=== PATIENT | male | born 1960 | race African-American/Black ===

== ENCOUNTER 2017-10-05 11:13 | Inpatient (IN) ==
[2017-10-05 12:11] LABS: Basophils # 0.1 10*3/uL (0.0-0.2); Basophils % 0.2 % (0.0-0.8); Eosinophils # 0.1 10*3/uL (0.0-0.87); Eosinophils % 0.4 % (0.00-10.9); Hematocrit 32.8 VOL% (42.0-52.0); Hemoglobin 11.3 GM/DL (14.0-18.0); Immature Granulocytes % 0.7 %; Immature Granulocytes Absolute 0.23 #; Lymphocytes # 20.2 10*3/uL (1.4-4.0); Lymphocytes % 60.2 % (21.2-54.2); Mean Corpuscular HGB Conc 34.5 GM/DL (32-36); Mean Corpuscular Hemoglobin 27 PG (27-34); Mean Corpuscular Volume 78.3 FL (87-102); Mean Platelet Volume 10.6 FL (9.6-12.0); Monocytes # 3.7 10*3/uL (0.11-0.8); Monocytes % 10.9 % (1.7-12.7); Neutrophils # 9.2 10*3/uL (1.4-7.4); Neutrophils % 27.6 % (38.7-73.9); Platelet Count 235 T/CUMM (130-400); Red Blood Count 4.19 MC/CUMM (3.8-5.5); Red Cell Distribution Width 15.3 % (9.3-17.3); White Blood Count 33.5 T/CUMM (4-12)
[2017-10-05 12:34] LABS: Atypical Lymphocytes Few; Eosinophils 1 % (0-10); Hypochromasia Slight; Lymphocytes 59 % (20-55); Platelet Estimate Adequate; Segmented Neutrophils 36 % (50-85); Total Cells Counted 100
[2017-10-05 12:35] LABS: Smudge Cells Few
[2017-10-05 12:55] LABS: Albumin 3.8 G/DL (3.4-5.0); Bilirubin,Total 0.8 MG/DL (0.2-1.0); Osmolality,Calculated 299.4 MOS/KG (273-304); Potassium 4.5 MMOL/L (3.5-5.1); Total Protein 7.5 G/DL (6.4-8.3)
[2017-10-05] MEDS ORDERED: ONDANSETRON 4 MG/2 ML VIAL IV PRN (13:21)
[2017-10-05] MEDS ORDERED: FUROSEMIDE 40 MG/4 ML VIAL IV STA (13:29)
[2017-10-05] MEDS ORDERED: cefTRIAXone 1,000 MG in SYRINGE 1 EACH IV STA (13:42)
[2017-10-05] MEDS ORDERED: AZITHROMYCIN INJ 500 MG in SODIUM CHLORIDE 0.9% 250 ML IV STA (13:42)
[2017-10-05] MEDS ORDERED: DEXTROSE 50% 25 GM/50 ML VIAL IV PRN (13:54)
[2017-10-05] MEDS ORDERED: GLUCAGON 1 MG VIAL IM PRN (13:54)
[2017-10-05] MEDS ORDERED: ONDANSETRON 4 MG/2 ML VIAL IV STA (14:13)
[2017-10-05 14:35] LABS: Hepatitis B Surface Ab Result Positive; Hepatitis B Surface Ag Quant < 0.10 Index; Hepatitis B Surface Ag Result Negative (Negative)
[2017-10-05] MEDS: CALCIUM CARBONATE CHEW 500 MG TABLET PO SCH (19:26)
[2017-10-05] MEDS: INSULIN LISPRO 100 UNIT/ML SUBCUT SCH ×2 (19:26→22:25)
[2017-10-05] MEDS: ENOXAPARIN 30 MG/0.3 ML SYRINGE SUBCUT SCH (22:25)
[2017-10-06] MEDS: ACETAMINOPHEN 325 MG TABLET PO PRN ×2 (05:38→19:46)
[2017-10-06 05:59] LABS: Basophils # 0.1 10*3/uL (0.0-0.2); Basophils % 0.2 % (0.0-0.8); Eosinophils # 0.1 10*3/uL (0.0-0.87); Eosinophils % 0.4 % (0.00-10.9); Hematocrit 33.1 VOL% (42.0-52.0); Hemoglobin 11.6 GM/DL (14.0-18.0); Immature Granulocytes % 0.5 %; Immature Granulocytes Absolute 0.16 #; Lymphocytes # 18.9 10*3/uL (1.4-4.0); Mean Corpuscular Hemoglobin 27 PG (27-34); Mean Corpuscular Volume 76.1 FL (87-102); Monocytes # 3.1 10*3/uL (0.11-0.8); Monocytes % 10.6 % (1.7-12.7); Neutrophils # 6.8 10*3/uL (1.4-7.4); Neutrophils % 23.3 % (38.7-73.9); Platelet Count 220 T/CUMM (130-400); Red Blood Count 4.35 MC/CUMM (3.8-5.5); Red Cell Distribution Width 15.3 % (9.3-17.3); White Blood Count 29.1 T/CUMM (4-12)
[2017-10-06 06:24] LABS: Atypical Lymphocytes Few; Hypochromasia 1+; Lymphocytes 64 % (20-55); Platelet Estimate Adequate; Segmented Neutrophils 35 % (50-85); Smudge Cells Few; Total Cells Counted 100
[2017-10-06 06:31] LABS: Albumin 3.2 G/DL (3.4-5.0); Bilirubin,Total 0.9 MG/DL (0.2-1.0); Calcium 8.5 MG/DL (8.5-10.1); Osmolality,Calculated 290.4 MOS/KG (273-304); Potassium 4.8 MMOL/L (3.5-5.1); Total Protein 7.2 G/DL (6.4-8.3)
[2017-10-06] MEDS: INSULIN LISPRO 100 UNIT/ML SUBCUT SCH ×4 (07:39→21:30)
[2017-10-06] MEDS: PANTOPRAZOLE 40 MG TABLET PO SCH (09:08)
[2017-10-06] MEDS: CALCIUM CARBONATE CHEW 500 MG TABLET PO SCH ×3 (09:08→17:19)
[2017-10-06] MEDS: DOCUSATE SODIUM 100 MG CAPSULE PO SCH (09:08)
[2017-10-06] MEDS: ENOXAPARIN 30 MG/0.3 ML SYRINGE SUBCUT SCH ×2 (19:47→21:31)
[2017-10-07 05:52] LABS: Basophils # 0.1 10*3/uL (0.0-0.2); Basophils % 0.2 % (0.0-0.8); Eosinophils # 0.2 10*3/uL (0.0-0.87); Eosinophils % 0.7 % (0.00-10.9); Hematocrit 29.4 VOL% (42.0-52.0); Hemoglobin 10.1 GM/DL (14.0-18.0); Immature Granulocytes % 0.6 %; Immature Granulocytes Absolute 0.19 #; Lymphocytes # 20.6 10*3/uL (1.4-4.0); Lymphocytes % 67.1 % (21.2-54.2); Mean Corpuscular HGB Conc 34.4 GM/DL (32-36); Mean Corpuscular Hemoglobin 27 PG (27-34); Mean Corpuscular Volume 77.2 FL (87-102); Monocytes # 3.9 10*3/uL (0.11-0.8); Monocytes % 12.7 % (1.7-12.7); Neutrophils # 5.8 10*3/uL (1.4-7.4); Neutrophils % 18.7 % (38.7-73.9); Platelet Count 202 T/CUMM (130-400); Red Blood Count 3.81 MC/CUMM (3.8-5.5); Red Cell Distribution Width 15.2 % (9.3-17.3); White Blood Count 30.7 T/CUMM (4-12)
[2017-10-07 06:35] LABS: Hypochromasia Slight; Lymphocytes 70 % (20-55); Microcytosis Slight; Platelet Estimate Adequate; Polychromasia Slight; Segmented Neutrophils 21 % (50-85); Smudge Cells Moderate; Target Cells Slight; Total Cells Counted 100
[2017-10-07 09:00] LABS: Calcium 8.8 MG/DL (8.5-10.1); Osmolality,Calculated 289.8 MOS/KG (273-304); Potassium 4.8 MMOL/L (3.5-5.1)
[2017-10-07] MEDS: CALCIUM CARBONATE CHEW 500 MG TABLET PO SCH ×3 (10:38→18:00)
[2017-10-07] MEDS: INSULIN LISPRO 100 UNIT/ML SUBCUT SCH ×4 (10:38→22:08)
[2017-10-07] MEDS: PANTOPRAZOLE 40 MG TABLET PO SCH (10:39)
[2017-10-07] MEDS: DOCUSATE SODIUM 100 MG CAPSULE PO SCH (13:43)
[2017-10-07] MEDS ORDERED: VANCOMYCIN INJ 1,750 MG in SODIUM CHLORIDE 0.9% 500 ML IV ONE (15:00)
[2017-10-07] MEDS: PIPERACILLIN/TAZOBACTAM 3,375 MG in SODIUM CHLORIDE 0.9% 100 ML IV SCH (15:19)
[2017-10-07] MEDS: ENOXAPARIN 30 MG/0.3 ML SYRINGE SUBCUT SCH (22:08)
[2017-10-08] MEDS: PIPERACILLIN/TAZOBACTAM 3,375 MG in SODIUM CHLORIDE 0.9% 100 ML IV SCH ×2 (02:10→17:32)
[2017-10-08 06:57] LABS: Basophils % 0.1 % (0.0-0.8); Eosinophils # 0.3 10*3/uL (0.0-0.87); Eosinophils % 0.9 % (0.00-10.9); Hematocrit 31.6 VOL% (42.0-52.0); Immature Granulocytes % 0.6 %; Immature Granulocytes Absolute 0.16 #; Mean Corpuscular HGB Conc 34.8 GM/DL (32-36); Mean Corpuscular Hemoglobin 26 PG (27-34); Mean Corpuscular Volume 75.6 FL (87-102); Mean Platelet Volume 10.8 FL (9.6-12.0); Monocytes # 2.4 10*3/uL (0.11-0.8); Monocytes % 8.6 % (1.7-12.7); Neutrophils # 5.8 10*3/uL (1.4-7.4); Neutrophils % 20.8 % (38.7-73.9); Platelet Count 232 T/CUMM (130-400); Red Blood Count 4.18 MC/CUMM (3.8-5.5); Red Cell Distribution Width 15.3 % (9.3-17.3); White Blood Count 27.6 T/CUMM (4-12)
[2017-10-08 07:21] LABS: Calcium 9.4 MG/DL (8.5-10.1); Osmolality,Calculated 287.5 MOS/KG (273-304); Potassium 4.4 MMOL/L (3.5-5.1)
[2017-10-08 07:23] LABS: Band Neutrophils 2 % (0-10); Lymphocytes 80 % (20-55); Platelet Estimate Normal; Segmented Neutrophils 18 % (50-85); Smudge Cells 1+; Total Cells Counted 100
[2017-10-08 07:24] LABS: Atypical Lymphocytes 1+; Target Cells Few
[2017-10-08] MEDS: INSULIN LISPRO 100 UNIT/ML SUBCUT SCH ×4 (08:32→20:39)
[2017-10-08] MEDS: DOCUSATE SODIUM 100 MG CAPSULE PO SCH (09:09)
[2017-10-08] MEDS: PANTOPRAZOLE 40 MG TABLET PO SCH (09:09)
[2017-10-08] MEDS: CALCIUM CARBONATE CHEW 500 MG TABLET PO SCH ×3 (09:09→17:32)
[2017-10-08] MEDS ORDERED: VANCOMYCIN INJ 750 MG in SODIUM CHLORIDE 0.9% 250 ML IV PRN (14:00)
[2017-10-08] MEDS: ACETAMINOPHEN 325 MG TABLET PO PRN (17:32)
[2017-10-08] MEDS: ENOXAPARIN 30 MG/0.3 ML SYRINGE SUBCUT SCH (20:35)
[2017-10-08] MEDS ORDERED: VANCOMYCIN INJ 750 MG in SODIUM CHLORIDE 0.9% 250 ML IV ONE (21:00)
[2017-10-09] MEDS: PIPERACILLIN/TAZOBACTAM 3,375 MG in SODIUM CHLORIDE 0.9% 100 ML IV SCH ×2 (04:30→17:06)
[2017-10-09] MEDS ORDERED: DILTIAZEM INJ 100 MG in SODIUM CHLORIDE 0.9% 100 ML IV SCH (05:30)
[2017-10-09 05:47] LABS: Basophils # 0.1 10*3/uL (0.0-0.2); Basophils % 0.2 % (0.0-0.8); Eosinophils # 0.4 10*3/uL (0.0-0.87); Eosinophils % 1.4 % (0.00-10.9); Hematocrit 32.8 VOL% (42.0-52.0); Hemoglobin 11.2 GM/DL (14.0-18.0); Immature Granulocytes % 0.6 %; Immature Granulocytes Absolute 0.15 #; Lymphocytes # 17.3 10*3/uL (1.4-4.0); Lymphocytes % 65.1 % (21.2-54.2); Mean Corpuscular HGB Conc 34.1 GM/DL (32-36); Mean Corpuscular Hemoglobin 26 PG (27-34); Mean Corpuscular Volume 76.6 FL (87-102); Mean Platelet Volume 10.4 FL (9.6-12.0); Monocytes # 2.4 10*3/uL (0.11-0.8); Monocytes % 9.1 % (1.7-12.7); Neutrophils # 6.3 10*3/uL (1.4-7.4); Neutrophils % 23.6 % (38.7-73.9); Platelet Count 230 T/CUMM (130-400); Red Blood Count 4.28 MC/CUMM (3.8-5.5); Red Cell Distribution Width 15.3 % (9.3-17.3); White Blood Count 26.5 T/CUMM (4-12)
[2017-10-09 06:17] LABS: Calcium 9.2 MG/DL (8.5-10.1); Potassium 4.5 MMOL/L (3.5-5.1)
[2017-10-09 08:00] LABS: Atypical Lymphocytes Moderate; Eosinophils 1 % (0-10); Lymphocytes 66 % (20-55); Platelet Estimate Adequate; Polychromasia Slight; Segmented Neutrophils 28 % (50-85); Total Cells Counted 100
[2017-10-09] MEDS: INSULIN LISPRO 100 UNIT/ML SUBCUT SCH ×4 (08:46→20:21)
[2017-10-09] MEDS: CALCIUM CARBONATE CHEW 500 MG TABLET PO SCH ×3 (09:31→17:06)
[2017-10-09] MEDS: DOCUSATE SODIUM 100 MG CAPSULE PO SCH (09:31)
[2017-10-09] MEDS: PANTOPRAZOLE 40 MG TABLET PO SCH (09:31)
[2017-10-09] MEDS ORDERED: METOPROLOL TARTRATE 25 MG TABLET PO SCH (11:30)
[2017-10-09] MEDS: ENOXAPARIN 100 MG/ML SYRINGE SUBCUT SCH (12:10)
[2017-10-10] MEDS: BENZONATATE 100 MG CAPSULE PO PRN ×3 (01:00→20:57)
[2017-10-10 04:16] LABS: Basophils # 0.1 10*3/uL (0.0-0.2); Basophils % 0.2 % (0.0-0.8); Eosinophils # 0.4 10*3/uL (0.0-0.87); Eosinophils % 1.5 % (0.00-10.9); Hematocrit 28.4 VOL% (42.0-52.0); Immature Granulocytes % 0.6 %; Immature Granulocytes Absolute 0.16 #; Lymphocytes # 17.6 10*3/uL (1.4-4.0); Lymphocytes % 66.8 % (21.2-54.2); Mean Corpuscular HGB Conc 35.2 GM/DL (32-36); Mean Corpuscular Hemoglobin 27 PG (27-34); Mean Corpuscular Volume 75.5 FL (87-102); Mean Platelet Volume 11.4 FL (9.6-12.0); Monocytes # 2.2 10*3/uL (0.11-0.8); Monocytes % 8.2 % (1.7-12.7); Neutrophils % 22.7 % (38.7-73.9); Platelet Count 248 T/CUMM (130-400); Red Blood Count 3.76 MC/CUMM (3.8-5.5); Red Cell Distribution Width 15.4 % (9.3-17.3); White Blood Count 26.4 T/CUMM (4-12)
[2017-10-10 04:43] LABS: Band Neutrophils 2 % (0-10); Eosinophils 2 % (0-10); Hypochromasia 1+; Lymphocytes 65 % (20-55); Myelocytes 1 %; Platelet Estimate Adequate; Segmented Neutrophils 27 % (50-85); Total Cells Counted 100
[2017-10-10 04:44] LABS: Atypical Lymphocytes Few
[2017-10-10 05:01] LABS: Calcium 9.2 MG/DL (8.5-10.1); Potassium 4.7 MMOL/L (3.5-5.1)
[2017-10-10] MEDS ORDERED: cloNIDine 0.1 MG TABLET PO PRN (05:23)
[2017-10-10 05:24] LABS: Risk Ratio 5.13; VLDL CHOLESTEROL 21.2 MG/DL
[2017-10-10] MEDS: PIPERACILLIN/TAZOBACTAM 3,375 MG in SODIUM CHLORIDE 0.9% 100 ML IV SCH ×2 (05:38→17:06)
[2017-10-10] MEDS: NIFEdipine 10 MG CAPSULE PO SCH (09:18)
[2017-10-10] MEDS: INSULIN LISPRO 100 UNIT/ML SUBCUT SCH ×4 (09:18→20:53)
[2017-10-10] MEDS: ENOXAPARIN 100 MG/ML SYRINGE SUBCUT SCH ×2 (09:18→10:21)
[2017-10-10] MEDS: METOPROLOL SUCCINATE XL 50 MG TABLET PO SCH (09:18)
[2017-10-10] MEDS: PANTOPRAZOLE 40 MG TABLET PO SCH (09:18)
[2017-10-10] MEDS: CALCIUM CARBONATE CHEW 500 MG TABLET PO SCH ×3 (09:18→17:01)
[2017-10-10] MEDS: DOCUSATE SODIUM 100 MG CAPSULE PO SCH (09:19)
[2017-10-10] MEDS ORDERED: VANCOMYCIN INJ 750 MG in SODIUM CHLORIDE 0.9% 250 ML IV ONE (18:00)
[2017-10-10] MEDS ORDERED: METOPROLOL TARTRATE 5 MG/5 ML VIAL IV ONE (19:21)
[2017-10-10] MEDS: METOPROLOL TARTRATE 5 MG/5 ML VIAL IV SCH (19:26)
[2017-10-10] MEDS ORDERED: METOPROLOL SUCCINATE XL 50 MG TABLET PO ONE (21:00)
[2017-10-11] MEDS ORDERED: METOPROLOL TARTRATE 5 MG/5 ML VIAL IV ONE ×3 (00:19)
[2017-10-11] MEDS: METOPROLOL TARTRATE 5 MG/5 ML VIAL IV SCH ×2 (00:25→00:33)
[2017-10-11] MEDS ORDERED: DILTIAZEM 100 MG VIAL.ADD IV ONE (00:50)
[2017-10-11] MEDS ORDERED: SODIUM CHLORIDE 0.9% 100 ML IV ONE ×2 (00:50→00:53)
[2017-10-11] MEDS: PIPERACILLIN/TAZOBACTAM 3,375 MG in SODIUM CHLORIDE 0.9% 100 ML IV SCH ×2 (05:33→17:22)
[2017-10-11] MEDS: CALCIUM CARBONATE CHEW 500 MG TABLET PO SCH ×3 (08:34→17:21)
[2017-10-11] MEDS: NIFEdipine 10 MG CAPSULE PO SCH (08:34)
[2017-10-11] MEDS: PANTOPRAZOLE 40 MG TABLET PO SCH (08:35)
[2017-10-11] MEDS: DOCUSATE SODIUM 100 MG CAPSULE PO SCH (08:35)
[2017-10-11] MEDS: METOPROLOL SUCCINATE XL 50 MG TABLET PO SCH (08:35)
[2017-10-11] MEDS: INSULIN LISPRO 100 UNIT/ML SUBCUT SCH ×4 (08:36→20:02)
[2017-10-11] MEDS: ENOXAPARIN 100 MG/ML SYRINGE SUBCUT SCH (08:36)
[2017-10-12 03:42] LABS: Basophils # 0.1 10*3/uL (0.0-0.2); Basophils % 0.2 % (0.0-0.8); Eosinophils # 0.4 10*3/uL (0.0-0.87); Eosinophils % 1.3 % (0.00-10.9); Hematocrit 27.3 VOL% (42.0-52.0); Hemoglobin 9.4 GM/DL (14.0-18.0); Immature Granulocytes % 0.7 %; Immature Granulocytes Absolute 0.18 #; Lymphocytes # 19.2 10*3/uL (1.4-4.0); Lymphocytes % 70.6 % (21.2-54.2); Mean Corpuscular HGB Conc 34.4 GM/DL (32-36); Mean Corpuscular Hemoglobin 26 PG (27-34); Mean Corpuscular Volume 75.4 FL (87-102); Mean Platelet Volume 10.9 FL (9.6-12.0); Monocytes # 2.2 10*3/uL (0.11-0.8); Monocytes % 8.3 % (1.7-12.7); Neutrophils # 5.1 10*3/uL (1.4-7.4); Neutrophils % 18.9 % (38.7-73.9); Platelet Count 306 T/CUMM (130-400); Red Blood Count 3.62 MC/CUMM (3.8-5.5); Red Cell Distribution Width 15.4 % (9.3-17.3); White Blood Count 27.1 T/CUMM (4-12)
[2017-10-12 03:57] LABS: Calcium 8.8 MG/DL (8.5-10.1); Osmolality,Calculated 285.8 MOS/KG (273-304); Potassium 4.6 MMOL/L (3.5-5.1)
[2017-10-12] MEDS: PIPERACILLIN/TAZOBACTAM 3,375 MG in SODIUM CHLORIDE 0.9% 100 ML IV SCH ×2 (04:36→17:02)
[2017-10-12] MEDS: BENZONATATE 100 MG CAPSULE PO PRN (04:49)
[2017-10-12 06:22] LABS: Total Cells Counted 100
[2017-10-12 07:00] LABS: Hypochromasia 1+; Lymphocytes 76 % (20-55); Microcytosis 1+; Platelet Estimate Normal; Segmented Neutrophils 22 % (50-85)
[2017-10-12 07:01] LABS: Smudge Cells Few
[2017-10-12] MEDS: ENOXAPARIN 30 MG/0.3 ML SYRINGE SUBCUT SCH (08:16)
[2017-10-12] MEDS: INSULIN LISPRO 100 UNIT/ML SUBCUT SCH ×4 (08:16→20:15)
[2017-10-12] MEDS: NIFEdipine 10 MG CAPSULE PO SCH (08:17)
[2017-10-12] MEDS: CALCIUM CARBONATE CHEW 500 MG TABLET PO SCH ×3 (08:17→16:44)
[2017-10-12] MEDS: METOPROLOL SUCCINATE XL 50 MG TABLET PO SCH (08:17)
[2017-10-12] MEDS: PANTOPRAZOLE 40 MG TABLET PO SCH (08:17)
[2017-10-12] MEDS: DOCUSATE SODIUM 100 MG CAPSULE PO SCH (08:17)
[2017-10-12] MEDS ORDERED: VANCOMYCIN INJ 500 MG in SODIUM CHLORIDE 0.9% 100 ML IV PRN (16:30)
[2017-10-12] MEDS ORDERED: VANCOMYCIN INJ 500 MG in SODIUM CHLORIDE 0.9% 100 ML IV ONE (18:00)
[2017-10-13] MEDS: PIPERACILLIN/TAZOBACTAM 3,375 MG in SODIUM CHLORIDE 0.9% 100 ML IV SCH ×2 (05:55→16:30)
[2017-10-13] MEDS: INSULIN LISPRO 100 UNIT/ML SUBCUT SCH ×4 (07:31→20:07)
[2017-10-13] MEDS: CALCIUM CARBONATE CHEW 500 MG TABLET PO SCH ×3 (08:00→17:35)
[2017-10-13] MEDS: PANTOPRAZOLE 40 MG TABLET PO SCH (08:00)
[2017-10-13] MEDS: NIFEdipine 10 MG CAPSULE PO SCH (08:00)
[2017-10-13] MEDS: METOPROLOL SUCCINATE XL 50 MG TABLET PO SCH (08:00)
[2017-10-13] MEDS: DOCUSATE SODIUM 100 MG CAPSULE PO SCH (08:01)
[2017-10-13] MEDS: ENOXAPARIN 30 MG/0.3 ML SYRINGE SUBCUT SCH (08:01)
[2017-10-13 08:28] LABS: Basophils # 0.1 10*3/uL (0.0-0.2); Basophils % 0.2 % (0.0-0.8); Eosinophils # 0.4 10*3/uL (0.0-0.87); Eosinophils % 1.8 % (0.00-10.9); Hematocrit 28.4 VOL% (42.0-52.0); Hemoglobin 9.5 GM/DL (14.0-18.0); Immature Granulocytes % 0.8 %; Immature Granulocytes Absolute 0.17 #; Lymphocytes # 15.7 10*3/uL (1.4-4.0); Lymphocytes % 71.3 % (21.2-54.2); Mean Corpuscular HGB Conc 33.5 GM/DL (32-36); Mean Corpuscular Hemoglobin 26 PG (27-34); Mean Platelet Volume 10.4 FL (9.6-12.0); Monocytes # 1.5 10*3/uL (0.11-0.8); Monocytes % 6.8 % (1.7-12.7); Neutrophils # 4.2 10*3/uL (1.4-7.4); Neutrophils % 19.1 % (38.7-73.9); Platelet Count 372 T/CUMM (130-400); Red Blood Count 3.64 MC/CUMM (3.8-5.5); Red Cell Distribution Width 15.4 % (9.3-17.3)
[2017-10-13 08:46] LABS: Calcium 9.1 MG/DL (8.5-10.1); Osmolality,Calculated 283.5 MOS/KG (273-304); Potassium 4.5 MMOL/L (3.5-5.1)
[2017-10-13 09:10] LABS: Atypical Lymphocytes Few; Eosinophils 1 % (0-10); Hypochromasia 1+; Lymphocytes 76 % (20-55); Microcytosis 1+; Segmented Neutrophils 22 % (50-85); Target Cells Slight; Total Cells Counted 100
[2017-10-13 09:11] LABS: Smudge Cells Few
[2017-10-13] MEDS: BENZONATATE 100 MG CAPSULE PO PRN (18:11)
[2017-10-14] MEDS: PIPERACILLIN/TAZOBACTAM 3,375 MG in SODIUM CHLORIDE 0.9% 100 ML IV SCH (04:38)
[2017-10-14] MEDS: METOPROLOL SUCCINATE XL 50 MG TABLET PO SCH (08:21)
[2017-10-14] MEDS: CALCIUM CARBONATE CHEW 500 MG TABLET PO SCH (08:21)
[2017-10-14] MEDS: PANTOPRAZOLE 40 MG TABLET PO SCH (08:21)
[2017-10-14] MEDS: DOCUSATE SODIUM 100 MG CAPSULE PO SCH (08:21)
[2017-10-14] MEDS: INSULIN LISPRO 100 UNIT/ML SUBCUT SCH ×2 (08:22→12:22)
[2017-10-14] MEDS: ENOXAPARIN 30 MG/0.3 ML SYRINGE SUBCUT SCH (08:22)
[2017-10-14] MEDS: NIFEdipine 10 MG CAPSULE PO SCH (08:28)
[2017-10-14 09:29] LABS: Basophils # 0.1 10*3/uL (0.0-0.2); Basophils % 0.3 % (0.0-0.8); Eosinophils # 0.4 10*3/uL (0.0-0.87); Eosinophils % 1.5 % (0.00-10.9); Hematocrit 30.1 VOL% (42.0-52.0); Hemoglobin 10.1 GM/DL (14.0-18.0); Immature Granulocytes % 0.6 %; Immature Granulocytes Absolute 0.16 #; Lymphocytes # 17.6 10*3/uL (1.4-4.0); Lymphocytes % 69.6 % (21.2-54.2); Mean Corpuscular HGB Conc 33.6 GM/DL (32-36); Mean Corpuscular Hemoglobin 26 PG (27-34); Mean Corpuscular Volume 76.8 FL (87-102); Mean Platelet Volume 10.2 FL (9.6-12.0); Monocytes # 1.9 10*3/uL (0.11-0.8); Monocytes % 7.6 % (1.7-12.7); Neutrophils # 5.1 10*3/uL (1.4-7.4); Neutrophils % 20.4 % (38.7-73.9); Platelet Count 441 T/CUMM (130-400); Red Blood Count 3.92 MC/CUMM (3.8-5.5); Red Cell Distribution Width 15.5 % (9.3-17.3); White Blood Count 25.2 T/CUMM (4-12)
[2017-10-14 10:39] LABS: Eosinophils 3 % (0-10); Hypochromasia 1+; Lymphocytes 72 % (20-55); Ovalocytes Slight; Platelet Estimate Increased; Segmented Neutrophils 22 % (50-85); Total Cells Counted 100
[2017-10-14 10:40] LABS: Atypical Lymphocytes Few; Microcytosis 1+; Smudge Cells Few
[2017-10-14 13:01] VITALS: BP 142/66
== END 2017-10-14 14:34 | disposition home or self-care (01) | DRG 189 ==
LOC: N.EDINP 11:13 → N.ED 11:13 → N.5E 14:30 → SUATTDRO 10-06 12:58 → N.TELEN 10-09 05:40
PROVIDERS: ADMIT Hospitalist; ATTEND Internal Medicine Nephrology